=== PATIENT | female | born 1965 | race Caucasian/White ===

== ENCOUNTER 2022-02-12 09:47 | Inpatient (IN) | payer BC, SELFPAY ==
[2022-02-12 09:51] VITALS: BP 189/120; PULSE 103; RESP 18; TEMP 36.9; O2SAT 100; BMI 20.9
--- NOTE | 2022-02-12 10:00 | CT_ITS ---
EXAM: CT ABDOMEN AND PELVIS WITH INTRAVENOUS CONTRAST CLINICAL INDICATION: LLQ pain , PRIOR HYSTERECTOMY TECHNIQUE: Helically acquired images were obtained of the abdomen and pelvis with intravenous contrast. This CT exam was performed using one or more of the following dose reduction techniques: automated exposure control, adjustment of the mA and/or kV according to patient size, and/or use of iterative reconstruction technique. This report was created using Conjectur report generation technology. CONTRAST: IV 75mL Isovue-370 COMPARISON: None. FINDINGS: LOWER THORAX: Normal. Lung bases are clear. No cardiomegaly. No pericardial effusion. ABDOMEN: LIVER: Normal. Homogeneous. No focal mass. GALLBLADDER AND BILE DUCTS: Normal. No calcified gallstones. No gallbladder distention or wall edema. No intra- or extrahepatic biliary ductal dilation. PANCREAS: Normal. No focal cystic or solid mass. SPLEEN: Normal. Normal size without focal cystic or solid mass. ADRENALS: Normal. No nodules. KIDNEYS AND URETERS: Aplastic right kidney. Compensatory hypertrophy of the left kidney. No hydronephrosis. STOMACH AND BOWEL: Wall thickening of the sigmoid colon noted associated with mild adjacent fat stranding consistent with acute sigmoid diverticulitis. There appears to be a small contained perforation along the anterior portion of the sigmoid colon abutting the posterior wall of the urinary bladder. PELVIS: APPENDIX: Normal short appendix or appendiceal stump is noted. BLADDER: Normal. REPRODUCTIVE: Uterus is absent. ABDOMEN and PELVIS: INTRAPERITONEAL SPACE: No ascites or other fluid collection. No free air. BONES/JOINTS: No suspicious lytic or blastic abnormality. SOFT TISSUES: No discrete abdominal or pelvic wall hernia. VASCULATURE: Normal. Abdominal aorta is non-dilated. LYMPH NODES: Normal. No enlarged lymph nodes. CT/Abdomen/Pelvis W IV Cont ONLY IMPRESSION: 1. Acute sigmoid diverticulitis with small contained anterior perforation. No evidence of abscess. 2. Absence of the right kidney with compensatory hypertrophy of the left kidney. Electronically Signed: John Beltrán MD at 12:02 EST ,
--- NOTE | 2022-02-12 10:01 | EDS_ITS ---
HPI HPI - GI History of Present Illness Chief Complaint: Abd Pain Informant: patient Abdominal Pain/Flank Pain Onset: Yesterday Context: - (Awoke with pain) Timing: Continuous (Not colicky) Quality: Aching and Sharp Location: LLQ Current Severity: Severe Maximum Severity: Severe Worsened by: - (Having bowel movement, no anal pain and not associated with Valsalva) Relieved by: Nothing Nausea/Vomiting/Emesis GI Symptom: Negative for Nausea or Vomiting Diarrhea/Melena/Hematochezia GI Symptom: Negative for Diarrhea, Melena or Hematochezia Associated Symptoms Associated Symptoms: Negative for Dysuria, Frequency, Hematuria or Urgency Narrative Narrative: Patient woke yesterday with this left lower quadrant abdominal pain, she states it seemed to get better after a bowel movement and then was relatively mild throughout the day yesterday. Awoke this morning with it severe, and it has remained that way since, getting worse with bowel movements this morning. No blood. States she had a colonoscopy in the past but does not remember them saying anything abnormal about it, no history of diverticulosis or diverticulitis that she knows of. No nausea, vomiting, fevers, or urinary symptoms. Occasionally radiates into her left low back specially when the pain is severe. PFSH PFSH Allergy/AdvReac Type Severity Reaction Status Date / Time chocolate flavor Allergy Other Verified 02/12/22 09:50 Food Allergies: Uncoded Allergy Other Verified 02/12/22 09:50 Iodinated Contrast Media AdvReac Hives Verified 02/12/22 10:19 Surgical History (Updated 02/12/22 @ 10:[address] Joseph Jones MD) H/O laparoscopy H/O: hysterectomy Social History Smoking Status: Current every day smoker tobacco type: cigarettes ROS ROS ED Constitutional Constitutional ED: Denies chills or fever(s) Eyes Eyes: Denies change in vision or diplopia ENT ENT ED: Denies rhinorrhea or sore throat Cardiovascular Cardiovascular: Denies chest pain or palpitations Respiratory/Chest Respiratory/Chest: Denies cough or dyspnea Gastrointestinal Gastrointestinal: Reports abdominal pain; Denies diarrhea, melena, nausea or vomiting Genitourinary Genitourinary ED: Denies dysuria, hematuria or urinary frequency Musculoskeletal Musculoskeletal: Reports back pain; Denies neck pain Integumentary Denies abscess or rash Neurologic Neurologic: Denies headache(s), paresthesias or weakness Psychiatric Psychiatric: Denies anxiety or suicidal thoughts EXAM Physical Exam Const Vital Signs: 02/12/22 09:51 Temperature 98.4 F Temperature Source Temporal Pulse Rate 103 H Respiratory Rate 18 Blood Pressure 189/120 H Blood Pressure Mean 143 Pulse Ox 100 Oxygen Delivery Method Room Air Positive well nourished and well developed General Appearance ED: well developed and NAD HEENT Reports moist mucous membranes normocephalic and atraumatic Eyes PERRL and EOMs intact bilaterally Neck full ROM and supple Resp normal respiratory effort and clear to auscultation bilaterally Cardio regular rate, regular rhythm and no murmurs GI non-distended GI Narrative: Suprapubic and left lower quadrant tenderness without guarding or rebound. Nontender lateral left flank, left upper quadrant, and the rest of the abdomen. Auscultation: normoactive bowel sounds Palpation: soft Back/Spine no CVA tenderness General Back: other FROM Extremity normal to inspection General Extremety ED: Negative for edema, pulses abnormal or tenderness General Extremity: Negative for edema or pulses abnormal Neuro oriented x3, CN's II-XII intact bilaterally and no sensory deficits noted Sensorium / Orientation: awake and alert Motor Exam: strength 5/5 throughout Skin no rashes or lesions noted and no wounds MDM MDM MDM Narrative Medical decision making narrative: Work-up including an IV contrasted CT, for which she was pretreated with our steroid protocol since she has a nonanaphylactic reaction to iodinated contrast media, shows acute sigmoid diverticulitis with a contained perforation, no signs of an abscess. She has a white blood count of 10.0 at the high end of normal and the rest of her labs are unremarkable. Discussed with Dr. Soriano with surgery, he recommends medical admission with IV antibiotics for this, and leaving the patient n.p.o., acutely. Will discuss with hospitalist. Patient is doing much better after treating with IV fluids, Zofran, and morphine. She did not develop any complications further while in the emergency department and has a nonsurgical abdomen. Lab Data Attestation: I reviewed the patient's lab results. Labs: Laboratory Results - last 24 hr 02/12/22 02/12/22 02/12/22 10:05 10:05 10:40 WBC 10.0 RBC 4.82 Hgb 15.8 H Hct 46.3 MCV 96.1 MCH 32.8 H MCHC 34.1 RDW Std Deviation 45.5 H RDW Coeff of Elizabeth 12.7 Plt Count 258 MPV 8.8 Immature Gran % (Auto) 0.300 Neut % (Auto) 79.2 H Lymph % (Auto) 12.6 L [place] % (Auto) 7.2 Eos % (Auto) 0.5 Baso % (Auto) 0.2 Absolute Neuts (auto) 7.9 H Absolute Lymphs (auto) 1.26 Nucleated RBC % 0 Sodium 139 Potassium 4.1 Chloride 104 Carbon Dioxide 28.0 Anion Gap 7 BUN 8 Creatinine 0.68 Estim Creat Clear Calc 84.11 Est GFR (MDRD) Af Amer 115 Est GFR (MDRD) Non-Af 95 BUN/Creatinine Ratio 11.8 Glucose 127 H Calcium 9.6 Urine Color Yellow Urine Clarity Clear Urine pH 7.0 Ur Specific [place] 1.005 Urine Protein Negative Urine Glucose (UA) Normal Urine Ketones Negative Urine Occult Blood Negative Urine Nitrite Negative Urine Bilirubin Negative Urine Urobilinogen Normal Ur Leukocyte Esterase Negative Urine RBC 0 SEEN Urine WBC 0 SEEN Ur Squamous Epith Cells 0 SEEN Urine Bacteria 0 SEEN Urine Mucus 0 SEEN Radiography Diagnostic Testing: Clinical Impression(s) from Imaging Studies Abdomen/Pelvis CT 02/12/22 10:00 IMPRESSION: 1. Acute sigmoid diverticulitis with small contained anterior perforation. No evidence of abscess. 2. Absence of the right kidney with compensatory hypertrophy of the left kidney. Electronically Signed: John Beltrán MD at 12:02 EST Reading Location ID and State: [facility] / [place] Tel , Service support , Discharge Plan Triage Chief Complaint: Abd Pain ED Provider: Joseph Jones Dx/Rx/DC Orders Clinical Impression: Diverticulitis of intestine with perforation without abscess or bleeding Primary Care Provider: Kingsley Paiz Referrals: Kingsley Paiz MD [Primary Care Provider] - Disposition Disposition: Acute Care [facility]
[2022-02-12 10:16] LABS: Absolute Lymphocyte Count 1.26 X10^3/uL (0.83-4.51); Absolute Neutrophil Count 7.9 X10^3/uL (2.0-7.7); Basophil# 0.02 X10^3/uL; Basophil% 0.2 % (0-1); Eosinophil# 0.05 X10^3/uL; Eosinophils% 0.5 % (0-5); Hematocrit 46.3 % (37-47); Hemoglobin 15.8 g/dL (12.0-15.0); Lymphocyte # 1.26 X10^3/ul (0.83-4.51); Lymphocyte % 12.6 % (19-41); Mean Corp Hgb Conc 34.1 g/dL (32-36); Mean Corpuscular Hgb 32.8 pg (27.0-32.0); Mean Corpuscular Volume 96.1 fL (81-99); Mean Platelet Vol. 8.8 fl (6.2-12.0); Monocyte# 0.72 X10^3/uL; Monocyte% 7.2 % (0-10); NRBC Flagged by Analyzer 0 % (0-5); Neutrophil % 79.2 % (47-70); Platelet Count 258 K/mm3 (150-450); RBC Distribution Width CV 12.7 % (11.6-14.6); RBC Distribution Width SD 45.5 fl (35.1-43.9); Red Blood Count 4.82 M/mm3 (4.2-5.4)
[2022-02-12] MEDS: 0.9% Normal Saline 1,000 ML 1000 ML IV (10:21)
[2022-02-12] MEDS: Ketorolac 15 MG/ML Vial IV (10:22)
[2022-02-12] MEDS: Ondansetron 4 MG/2 ML Vial IV (10:22)
[2022-02-12] MEDS: Morphine 4 MG/ML Syringe IV (10:22)
[2022-02-12 10:28] LABS: Anion Gap 7 (5-15); BUN 8 mg/dL (7-18); BUN/Creat Ratio 11.8 RATIO (10-20); Calcium,Total 9.6 mg/dL (8.5-10.1); Chloride 104 mmol/L (98-107); Creatinine, Serum 0.68 mg/dL (0.55-1.02); EST Glomerular Filtration Rate 95 mL/min (>60); Est Glom Filt Rate - Afr Amer 115 mL/min (>60); Estimated Creatinine Clearance 84.11 ml/min; Glucose 127 mg/dL (74-106); Potassium 4.1 mmol/L (3.5-5.1); Sodium Level 139 mmol/L (136-145)
[2022-02-12] MEDS: DiphenhydrAMINE 50 MG/ML Syringe IV (10:46)
[2022-02-12 10:51] LABS: Bacteria 0 SEEN /hpf (None Seen); Mucous, Urine 0 SEEN /hpf (<or=2+); Red Blood Cells-Urine 0 SEEN /hpf (0-5); Squamous Epithelial Cells - UA 0 SEEN /hpf (5-10); White Blood Cells 0 SEEN /hpf (0-5)
[2022-02-12 11:06] LABS: Color, Urine Yellow (Yellow); Glucose, Dipstick Normal (Normal); Ketone-Dipstick Negative (Negative); Leukocyte Esterase-Dipstick Negative /ul (Negative); Nitrite-Dipstick Negative (Negative); Occult Blood-Urine Negative /ul (Negative); Protein-Dipstick Negative (Negative); Specific Gravity, Urine 1.005 (1.002-1.030); Urine Bilirubin Dipstick Negative (Negative); Urine Clarity Clear (Clear); Urine Urobilinogen Normal (Normal)
[2022-02-12 12:00] VITALS: RESP 16
--- NOTE | 2022-02-12 12:52 | PCM.HP.STD ---
HPI - General General Date of Admission: 02/12/22 Date of Service: 02/12/22 Chief Complaint: Abdominal pain HPI Narrative DALE ESPINOZA, is a 56 F who presents 2 days of abdominal pain. Left lower quadrant. Became more severe today and presented to the emergency room. Patient had a CAT scan that showed acute sigmoid diverticulitis with small contained anterior perforation. Dr. Soriano, general surgery, was contacted in the emergency room and advised antibiotics and admission. [facility] Medical History (Updated 02/12/22 @ 12:[address] Víctor Boucher DO) Fibromyalgia HTN (hypertension) Allergy/AdvReac Type Severity Reaction Status Date / Time chocolate flavor Allergy Other Verified 02/12/22 09:50 Food Allergies: Uncoded Allergy Other Verified 02/12/22 09:50 Iodinated Contrast Media AdvReac Hives Verified 02/12/22 10:19 Family History (Updated 02/12/22 @ 12:[address] Víctor Boucher DO) Other Cancer Surgical History (Updated 02/12/22 @ 10:[address] Joseph Jones MD) H/O laparoscopy H/O: hysterectomy Social History (Updated 02/12/22 @ 12:[address] Víctor Boucher DO) Smoking Status: Current every day smoker tobacco type: cigarettes alcohol intake: current alcohol intake frequency: a few times a month ROS ROS Narrative No fever chills. No hematochezia, no melena. All review of systems were negative except as mentioned above in the history of present illness and the other review of systems. Vital Signs Vital Signs Vital Signs: 02/12/22 09:51 02/12/22 12:00 Temperature 36.9 C Temperature Source Temporal Pulse Rate 103 H Respiratory Rate 18 16 Blood Pressure 189/120 H Blood Pressure Mean 143 Pulse Ox 100 Oxygen Delivery Method Room Air Weight Weight: 57 kg Body Mass Index (BMI) 20.9 Physical Exam Const alert and no apparent distress HEENT normocephalic and head/scalp atraumatic Resp normal respiratory effort, no retractions and no use of accessory muscles Cardio regular rate, regular rhythm, S1 normal heart sound and S2 normal heart sound GI normal to inspection, nondistended, normoactive bowel sounds and soft to palpation GI Narrative: Tender in left lower quadrant with rebound Extremity normal to inspection Results Lab / Micro Data Attestation: I reviewed the patient's lab results. Result Diagrams: 02/12/22 10:05 02/12/22 10:05 Labs: Laboratory Results - last 24 hr 02/12/22 10:05: WBC 10.0, RBC 4.82, Hgb 15.8 H, Hct 46.3, MCV 96.1, MCH 32.8 H, MCHC 34.1, RDW Std Deviation 45.5 H, RDW Coeff of Elizabeth 12.7, Plt Count 258, MPV 8.8, Immature Gran % (Auto) 0.300, Neut % (Auto) 79.2 H, Lymph % (Auto) 12.6 L, [place] % (Auto) 7.2, Eos % (Auto) 0.5, Baso % (Auto) 0.2, Absolute Neuts (auto) 7.9 H, Absolute Lymphs (auto) 1.26, Nucleated RBC % 0 02/12/22 10:05: Sodium 139, Potassium 4.1, Chloride 104, Carbon Dioxide 28.0, Anion Gap 7, BUN 8, Creatinine 0.68, Estim Creat Clear Calc 84.11, Est GFR (MDRD) Af Amer 115, Est GFR (MDRD) Non-Af 95, BUN/Creatinine Ratio 11.8, Glucose 127 H, Calcium 9.6 02/12/22 10:40: Urine Color Yellow, Urine Clarity Clear, Urine pH 7.0, Ur Specific [place] 1.005, Urine Protein Negative, Urine Glucose (UA) Normal, Urine Ketones Negative, Urine Occult Blood Negative, Urine Nitrite Negative, Urine Bilirubin Negative, Urine Urobilinogen Normal, Ur Leukocyte Esterase Negative, Urine RBC 0 SEEN, Urine WBC 0 SEEN, Ur Squamous Epith Cells 0 SEEN, Urine Bacteria 0 SEEN, Urine Mucus 0 SEEN Radiology Impression Abdomen/Pelvis CT 02/12/22 10:00 IMPRESSION: 1. Acute sigmoid diverticulitis with small contained anterior perforation. No evidence of abscess. 2. Absence of the right kidney with compensatory hypertrophy of the left kidney. Electronically Signed: John eBltrán MD at 12:02 EST Reading Location ID and State: [address] [place] [address] Tel , Service support , Assessment & Plan Assessment/Plan (1) Diverticulitis of intestine with perforation without abscess or bleeding: PLAN: No surgery at this time. Continue with broad-spectrum antibiotics with piperacillin/tazobactam. Clear liquid diet Consult general surgery in case her condition worsens. PLAN: Plan Chronic conditions fibromyalgia: Continue pain control hypertension: Not on home medications. Blood pressure is accelerated here. Initiate amlodipine. VTE prophylaxis with low molecular weight heparin Anticipated length of stay is to be determined. Patient currently hemodynamic stable but has high risk for rapid deterioration This perforation gets worse therefore requiring potential surgery. Charges/Coding Visit Charges Inpatient E&M: 49113 Init Hosp L2
[2022-02-12 13:00] VITALS: BP 163/101; PULSE 97; RESP 16; TEMP 36.6
[2022-02-12 13:30] VITALS: BP 149/89; PULSE 73; RESP 18; TEMP 37.2; O2SAT 95
[2022-02-12 13:34] VITALS: BMI 20.9
[2022-02-12] MEDS: Acetaminophen 500 MG Tablet 1000 MG PO ×2 (14:02→21:49)
[2022-02-12] MEDS: oxyCODONE 5 MG Tablet PO ×2 (15:29→20:13)
[2022-02-12 20:09] VITALS: BP 131/93; PULSE 61; RESP 18; TEMP 36.8; O2SAT 95
[2022-02-13 03:24] VITALS: BP 128/61; PULSE 53; RESP 18; TEMP 36.8; O2SAT 96
[2022-02-13] MEDS: Acetaminophen 500 MG Tablet 1000 MG PO (05:35)
[2022-02-13] MEDS: oxyCODONE 5 MG Tablet PO ×2 (05:38→10:54)
[2022-02-13 06:18] LABS: Absolute Lymphocyte Count 1.59 X10^3/uL (0.83-4.51); Absolute Neutrophil Count 6.3 X10^3/uL (2.0-7.7); Basophil# 0.01 X10^3/uL; Basophil% 0.1 % (0-1); Eosinophil# 0.01 X10^3/uL; Eosinophils% 0.1 % (0-5); Hematocrit 46.1 % (37-47); Hemoglobin 14.9 g/dL (12.0-15.0); Lymphocyte # 1.59 X10^3/ul (0.83-4.51); Lymphocyte % 18.7 % (19-41); Mean Corp Hgb Conc 32.3 g/dL (32-36); Mean Corpuscular Hgb 31.9 pg (27.0-32.0); Mean Corpuscular Volume 98.7 fL (81-99); Mean Platelet Vol. 9.3 fl (6.2-12.0); Monocyte# 0.55 X10^3/uL; Monocyte% 6.5 % (0-10); NRBC Flagged by Analyzer 0 % (0-5); Neutrophil # 6.34 X10^3/uL (2.7-7.7); Neutrophil % 74.4 % (47-70); Platelet Count 230 K/mm3 (150-450); RBC Distribution Width CV 12.5 % (11.6-14.6); RBC Distribution Width SD 45.1 fl (35.1-43.9); Red Blood Count 4.67 M/mm3 (4.2-5.4); White Blood Count 8.5 K/mm3 (4.4-11.0)
[2022-02-13 06:47] LABS: Anion Gap 5 (5-15); BUN 7 mg/dL (7-18); BUN/Creat Ratio 10.2 RATIO (10-20); Calcium,Total 8.8 mg/dL (8.5-10.1); Chloride 106 mmol/L (98-107); Creatinine, Serum 0.68 mg/dL (0.55-1.02); EST Glomerular Filtration Rate 95 mL/min (>60); Est Glom Filt Rate - Afr Amer 114 mL/min (>60); Estimated Creatinine Clearance 84.11 ml/min; Glucose 86 mg/dL (74-106); Sodium Level 138 mmol/L (136-145)
--- NOTE | 2022-02-13 07:25 | PCM.PN.HOSP ---
Subjective Subjective Abdomen feeling better. Objective Data Objective Data Vital Signs: Vital Signs Temp Pulse Resp BP Pulse Ox O2 Del Method 36.8 C 53 L 18 128/61 H 96 Room Air 02/13/22 03:24 02/13/22 03:24 02/13/22 03:24 02/13/22 03:24 02/13/22 03:24 02/13/22 03:24 Oxygen Delivery Method Room Air Weight: 57 kg Body Mass Index (BMI) 20.9 Intake & Output: Intake and Output for Last 24 Hours 02/11/22 02/12/22 02/13/22 23:59 23:59 23:59 Intake Total 1065.75 / 1365.75 407.5 / 407.5 Balance 1065.75 / 1365.75 407.5 / 407.5 Lab / Micro Data Result Diagrams: 02/13/22 05:44 02/13/22 05:44 Labs: Laboratory Results - last 24 hr 02/12/22 10:05: WBC 10.0, RBC 4.82, Hgb 15.8 H, Hct 46.3, MCV 96.1, MCH 32.8 H, MCHC 34.1, RDW Std Deviation 45.5 H, RDW Coeff of Elizabeth 12.7, Plt Count 258, MPV 8.8, Immature Gran % (Auto) 0.300, Neut % (Auto) 79.2 H, Lymph % (Auto) 12.6 L, [place] % (Auto) 7.2, Eos % (Auto) 0.5, Baso % (Auto) 0.2, Absolute Neuts (auto) 7.9 H, Absolute Lymphs (auto) 1.26, Nucleated RBC % 0 02/12/22 10:05: Sodium 139, Potassium 4.1, Chloride 104, Carbon Dioxide 28.0, Anion Gap 7, BUN 8, Creatinine 0.68, Estim Creat Clear Calc 84.11, Est GFR (MDRD) Af Amer 115, Est GFR (MDRD) Non-Af 95, BUN/Creatinine Ratio 11.8, Glucose 127 H, Calcium 9.6 02/12/22 10:40: Urine Color Yellow, Urine Clarity Clear, Urine pH 7.0, Ur Specific [place] 1.005, Urine Protein Negative, Urine Glucose (UA) Normal, Urine Ketones Negative, Urine Occult Blood Negative, Urine Nitrite Negative, Urine Bilirubin Negative, Urine Urobilinogen Normal, Ur Leukocyte Esterase Negative, Urine RBC 0 SEEN, Urine WBC 0 SEEN, Ur Squamous Epith Cells 0 SEEN, Urine Bacteria 0 SEEN, Urine Mucus 0 SEEN 02/13/22 05:44: WBC 8.5, RBC 4.67, Hgb 14.9, Hct 46.1, MCV 98.7, MCH 31.9, MCHC 32.3 D, RDW Std Deviation 45.1 H, RDW Coeff of [place] 12.5, Plt Count 230, MPV 9.3, Immature Gran % (Auto) 0.200, Neut % (Auto) 74.4 H, Lymph % (Auto) 18.7 L, [place] % (Auto) 6.5, Eos % (Auto) 0.1, Baso % (Auto) 0.1, Absolute Neuts (auto) 6.3, Absolute Lymphs (auto) 1.59, Nucleated RBC % 0 02/13/22 05:44: Sodium 138, Potassium 4.0, Chloride 106, Carbon Dioxide 27.0, Anion Gap 5, BUN 7, Creatinine 0.68, Estim Creat Clear Calc 84.11, Est GFR (MDRD) Af Amer 114, Est GFR (MDRD) Non-Af 95, BUN/Creatinine Ratio 10.2, Glucose 86, Calcium 8.8 Radiography Diagnostic Testing: Radiology Impression Abdomen/Pelvis CT 02/12/22 10:00 IMPRESSION: 1. Acute sigmoid diverticulitis with small contained anterior perforation. No evidence of abscess. 2. Absence of the right kidney with compensatory hypertrophy of the left kidney. Electronically Signed: John Beltrán MD at 12:02 EST , Physical Exam Const alert and no apparent distress Resp normal respiratory effort, no retractions, no use of accessory muscles and clear to auscultation bilaterally Cardio regular rate, regular rhythm and S1 normal heart sound GI GI Narrative: Less tenderness in left lower quadrant. No rebound tenderness Assessment & Plan Assessment/Plan (1) Diverticulitis of intestine with perforation without abscess or bleeding: PLAN: Clinically improved. No surgery at this time. Continue with broad-spectrum antibiotics with piperacillin/tazobactam. Clear liquid diet Consult general surgery in case her condition worsens. PLAN: Plan Chronic conditions fibromyalgia: Continue pain control hypertension: Not on home medications. Blood pressure is accelerated here. Initiate amlodipine. VTE prophylaxis with low molecular weight heparin Anticipated length of stay is to be determined. Patient currently hemodynamic stable but has high risk for rapid deterioration This perforation gets worse therefore requiring potential surgery. Charges/Coding Visit Charges Inpatient E&M: 64972 Subs Hosp L2
[2022-02-13 09:24] VITALS: BP 140/87; PULSE 56; RESP 16; TEMP 36.9; O2SAT 100
[2022-02-13] MEDS: Enoxaparin 40 MG/0.4 ML Syringe SC (09:40)
--- NOTE | 2022-02-13 10:50 | CASEMGMT ---
RN CM Face to Face with patient for initial transition planning/care coordination assessment. RN CM introduced self and role at [facility]. Patient lying in bed, alert and oriented, boyfriend at bedside. Patient willing to participate in assessment and is able to answer all questions appropriately. Care providers, pharmacy, and demographics verified. Patient wishes to discharge home, denies need for home health at this time. Patient states she has no further needs or concerns at this time. CM to follow for discharge planning needs that may arise. PCP: [facility] Specialists: jules Mckeon Preferred Pharmacy: [facility] Insurance: [place] Prescription Benefit: yes Living Will/HPOA: none LNOK: sister, mother Living Arrangements: Patient lives alone in a 2 story home with bed and bath on first floor. Patient is independent at home. Transportation: self, boyfriendn DME/HHC: Patient denies DME in the home. Patient denies previous HHC Disposition Plan: Patient to discharge home with family support and follow-up plans in place. Rebecca ADKINSN, RN, CM
--- NOTE | 2022-02-13 12:43 | DCINST_ITS ---
Discharge Instructions Diet Discharge Diet: Soft diet Dressing / Incision Call your doctor if you observe: - (worsening abdominal pain. ) Follow Up Care Test Results: Test results from this visit will be discussed in further detail at your follow- up appointment, if applicable. Discharge Plan Admission Admit Date/Time: 02/12/22 12:48 Primary Reason for Your Visit: diverticulitis Attending Provider: Víctor Boucher Primary Care Provider: Kingsley Paiz Consulting Providers: Ja Soriano Discharge Orders/Prescriptions Prescriptions: New acetaminophen 500 mg Tablet 1,000 mg PO Q8 PRN (Reason: fever or pain) Qty: 20 0RF oxycodone 5 mg Tablet 5 mg PO Q6H PRN (Reason: pain (scale score 7-10)) 3 Days Qty: 12 0RF ciprofloxacin HCl [Cipro] 500 mg tablet 500 mg PO Q12H Qty: 14 0RF metronidazole 500 mg tablet 500 mg PO Q8H Qty: 21 0RF ondansetron 8 mg tablet,disintegrating 8 mg PO Q8H PRN (Reason: nausea and vomiting) 5 Days Qty: 15 0RF Held tramadol 100 mg tablet extended release 24 hr 100 mg PO PRN (Reason: Pain) Hold Instructions: hold while taking oxycodone Label Comments: TAKE 1 TABLET BY MOUTH EVERY DAY Referrals / Follow Up: Ja Soriano MD [Med Staff - Active Staff] - Within 2 Weeks Kingsley Paiz MD [Primary Care Provider] - Within 2 Weeks Disposition Disposition (needs filled in before D/C Order can be placed): Home, Self Care
--- NOTE | 2022-02-13 12:49 | DS.PCM_ITS ---
Providers Date of Admission: 02/12/22 Primary Care Physician: Dr. Kingsley Paiz MD Consultations 02/12/22 13:26 Consult: General Surgery Routine Consulting Provider: Ja Soriano Reason for Consult: diverticulitis EMERGENT Consult: No MD Notified: Yes Date Notified: 02/12/22 Time Notified: 12:50 Method of Notification: ED Physician Initiated Reason For Visit: DIVERTICULITIS Diagnosis Discharge Diagnosis (1) Diverticulitis of intestine with perforation without abscess or bleeding: Status: Acute Code(s): K57.80 - Diverticulitis of intestine, part unspecified, with perforation and abscess without bleeding Plan: Clinically improved. No surgery at this time. Discussed with Dr. Soriano: Recommends soft diet and follow-up with him. Patient will be discharged with 7 days of ciprofloxacin and metronidazole. Patient advised to return if she is feeling worse. Patient also received a short prescription of oxycodone as well as Zofran. Plan Chronic conditions * fibromyalgia: Continue pain control * hypertension: Not on home medications. Blood pressure is accelerated here. Initiate amlodipine. VTE prophylaxis with low molecular weight heparin Anticipated length of stay is to be determined. Patient currently hemodynamic stable but has high risk for rapid deterioration This perforation gets worse therefore requiring potential surgery. Medications at Discharge Home Medications tramadol 100 mg tablet,extended release 24 hr 100 mg PO PRN Pain 02/12/22 acetaminophen 500 mg tablet 1,000 mg PO Q8 PRN fever or pain #20 tabs 02/13/22 ciprofloxacin HCl 500 mg tablet (Cipro) 500 mg PO Q12H #14 tabs 02/13/22 metronidazole 500 mg tablet 500 mg PO Q8H #21 tabs 02/13/22 ondansetron 8 mg disintegrating tablet 8 mg PO Q8H PRN nausea and vomiting 5 days #15 tabs 02/13/22 oxycodone 5 mg tablet 5 mg PO Q6H PRN pain (scale score 7-10) 3 days #12 tabs 02/13/22 Hospital Course Operations None Procedures None Summary of Care Provided Minutes Spent on Discharge: 26 Weight / BMI Weight Weight: 57 kg Body Mass Index (BMI) 20.9 ABG / Lab / Microbiology Data Result Diagrams: 02/13/22 05:44 02/13/22 05:44 Laboratory: Laboratory Results - last 24 hr 02/13/22 05:44: WBC 8.5, RBC 4.67, Hgb 14.9, Hct 46.1, MCV 98.7, MCH 31.9, MCHC 32.3 D, RDW Std Deviation 45.1 H, RDW Coeff of [place] 12.5, Plt Count 230, MPV 9.3, Immature Gran % (Auto) 0.200, Neut % (Auto) 74.4 H, Lymph % (Auto) 18.7 L, [place] % (Auto) 6.5, Eos % (Auto) 0.1, Baso % (Auto) 0.1, Absolute Neuts (auto) 6.3, Absolute Lymphs (auto) 1.59, Nucleated RBC % 0 02/13/22 05:44: Sodium 138, Potassium 4.0, Chloride 106, Carbon Dioxide 27.0, Anion Gap 5, BUN 7, Creatinine 0.68, Estim Creat Clear Calc 84.11, Est GFR (MDRD) Af Amer 114, Est GFR (MDRD) Non-Af 95, BUN/Creatinine Ratio 10.2, Glucose 86, Calcium 8.8 D/C Instructions Discharge Diet: Soft diet Call your doctor if you observe: - (worsening abdominal pain. ) Meaningful Use Info Meaningful Use Diagnoses (Choose all that apply): None applicable Discharge Plan Admission Admit Date/Time: 02/12/22 12:48 Primary Reason for Your Visit: diverticulitis Attending Provider: Víctor Boucher Primary Care Provider: Kingsley Paiz Consulting Providers: Ja Soriano Discharge Orders/Prescriptions Prescriptions: New acetaminophen 500 mg Tablet 1,000 mg PO Q8 PRN (Reason: fever or pain) Qty: 20 0RF oxycodone 5 mg Tablet 5 mg PO Q6H PRN (Reason: pain (scale score 7-10)) 3 Days Qty: 12 0RF ciprofloxacin HCl [Cipro] 500 mg tablet 500 mg PO Q12H Qty: 14 0RF metronidazole 500 mg tablet 500 mg PO Q8H Qty: 21 0RF ondansetron 8 mg tablet,disintegrating 8 mg PO Q8H PRN (Reason: nausea and vomiting) 5 Days Qty: 15 0RF Held tramadol 100 mg tablet extended release 24 hr 100 mg PO PRN (Reason: Pain) Hold Instructions: hold while taking oxycodone Label Comments: TAKE 1 TABLET BY MOUTH EVERY DAY Referrals / Follow Up: Ja Soriano MD [Med Staff - Active Staff] - Within 2 Weeks Kingsley Paiz MD [Primary Care Provider] - Within 2 Weeks Disposition Disposition (needs filled in before D/C Order can be placed): Home, Self Care Charges/Coding Visit Charges Inpatient E&M: 53362 Disch Hosp
--- NOTE | 2022-02-13 13:19 | EX.PCM.CON.S ---
Assessment & Plan Assessment/Plan (1) Diverticulitis of intestine with perforation without abscess or bleeding: PLAN: Patient is currently doing well on medical management. And I believe that it is okay for her to be discharged and staying on a very low residue diet. Patient understands that there is a likelihood that this could recur and if she is to redevelop any abdominal pain I want her to stop eating it once and report to my office NEAL. At some point we are going to have to repeat a colonoscopy on her. This would likely need to be done under propofol anesthesia. I do not believe she needs any emergent surgical intervention at this time. HPI Consult Data Date of Consult: 02/13/22 HPI Narrative HPI Narrative: DALE ESPINOZA, is a 56 F who presents 2 days of abdominal pain.? Left lower quadrant.? Became more severe today and presented to the emergency room.? Patient had a CAT scan that showed acute sigmoid diverticulitis with small contained anterior perforation. Patient has not complaining of any abdominal pain today states she feels 100% better than she did yesterday. She is passing flatus. Her white count is normal. [facility] [place] Medical History Fibromyalgia HTN (hypertension) Home Medications tramadol 100 mg tablet,extended release 24 hr 100 mg PO PRN Pain 02/12/22 [History Last Taken Unknown] acetaminophen 500 mg tablet 1,000 mg PO Q8 PRN fever or pain #20 tabs 02/13/22 [Rx Last Taken Unknown] ciprofloxacin HCl 500 mg tablet (Cipro) 500 mg PO Q12H #14 tabs 02/13/22 [Rx Last Taken Unknown] metronidazole 500 mg tablet 500 mg PO Q8H #21 tabs 02/13/22 [Rx Last Taken Unknown] ondansetron 8 mg disintegrating tablet 8 mg PO Q8H PRN nausea and vomiting 5 days #15 tabs 02/13/22 [Rx Last Taken Unknown] oxycodone 5 mg tablet 5 mg PO Q6H PRN pain (scale score 7-10) 3 days #12 tabs 02/13/22 [Rx Last Taken Unknown] Allergy/AdvReac Type Severity Reaction Status Date / Time chocolate flavor Allergy Other Verified 02/12/22 09:50 Food Allergies: Uncoded Allergy Other Verified 02/12/22 09:50 Iodinated Contrast Media AdvReac Hives Verified 02/12/22 10:19 Family History (Updated 02/12/22 @ 12:[address] Víctor Boucher DO) Other Cancer Surgical History (Updated 02/12/22 @ 10:[address] Joseph Jones MD) H/O laparoscopy H/O: hysterectomy Social History (Updated 02/12/22 @ 12:[address] Víctor Boucher DO) Smoking Status: Current every day smoker tobacco type: cigarettes alcohol intake: current alcohol intake frequency: a few times a month ROS Constitutional Constitutional: Denies anorexia, chills or fever(s) Cardiovascular Cardiovascular: Denies chest pain Respiratory/Chest Respiratory/Chest: Denies cough Gastrointestinal Gastrointestinal: Denies abdominal pain or bloating Genitourinary Genitourinary: Denies change in urinary stream Physical Exam Const alert, oriented x3 and no apparent distress HEENT normocephalic and head/scalp atraumatic Eyes PERRL and EOMs intact bilaterally Resp clear to auscultation bilaterally Cardio Rate: regular rate Rhythm: regular rhythm GI soft to palpation, non-tender and non-distended Back/Spine no CVA tenderness Lab / Micro Data Result Diagrams: 02/13/22 05:44 02/13/22 05:44 Labs: Laboratory Results - last 24 hr 02/13/22 05:44: WBC 8.5, RBC 4.67, Hgb 14.9, Hct 46.1, MCV 98.7, MCH 31.9, MCHC 32.3 D, RDW Std Deviation 45.1 H, RDW Coeff of Elizabeth 12.5, Plt Count 230, MPV 9.3, Immature Gran % (Auto) 0.200, Neut % (Auto) 74.4 H, Lymph % (Auto) 18.7 L, [place] % (Auto) 6.5, Eos % (Auto) 0.1, Baso % (Auto) 0.1, Absolute Neuts (auto) 6.3, Absolute Lymphs (auto) 1.59, Nucleated RBC % 0 02/13/22 05:44: Sodium 138, Potassium 4.0, Chloride 106, Carbon Dioxide 27.0, Anion Gap 5, BUN 7, Creatinine 0.68, Estim Creat Clear Calc 84.11, Est GFR (MDRD) Af Amer 114, Est GFR (MDRD) Non-Af 95, BUN/Creatinine Ratio 10.2, Glucose 86, Calcium 8.8
[2022-02-13 13:47] VITALS: BP 117/90; PULSE 56; RESP 16; TEMP 37; O2SAT 100
== END 2022-02-13 14:05 | disposition home or self-care (01) | DRG 379 ==
LOC: ED 12:27 → MS3 14:57
PROVIDERS: Emergency Provider Emergency Medicine; PCP Family Medicine
DX: K57.21 Diverticulitis of large intestine with perforation and abscess with bleeding (principal); F17.210 Nicotine dependence, cigarettes, uncomplicated; M79.7 Fibromyalgia; I10 Essential (primary) hypertension; Z79.899 Other long term (current) drug therapy
CPT/HCPCS: 36415; 74177; 80048; 81001; 85025; 99284; 99406; J7030; J7050; Q9967; A4216; J0744; J2405

== ENCOUNTER → 2022-04-17 | Outpatient (CLI) | payer BC, SELFPAY ==
--- NOTE | 2022-04-17 09:14 | RAD_ITS ---
STUDY: X-RAY - LUMBAR SPINE REASON FOR EXAM: Female, 56 years old. M54.5 TECHNIQUE: 4 view(s) of the lumbar spine were obtained. COMPARISON: None FINDINGS: Normal lumbar lordosis. There is no substantial scoliosis. There is a normal alignment of the vertebrae. Normal vertebral bodies and endplates. Normal disc space heights. There is no evidence of acute fracture or loss of vertebral axial height. There is no demonstrated spondylolysis of the pars interarticulares. There is atherosclerotic calcification of the abdominal aorta without a demonstrated aneurysm. RAD/L/S Spine Min 4 Views IMPRESSION: Normal x-ray examination of the lumbar spine. Electronically Signed: Ayush Rodrigues DO at 16:52 EST ,
== END | disposition home or self-care (01) ==
LOC: RAD 09:10
PROVIDERS: PCP Family Medicine; Visit Provider Anesthesiology Pain Medicine
DX: M47.816 Spondylosis without myelopathy or radiculopathy, lumbar region (principal)
CPT/HCPCS: 72110

== ENCOUNTER 2024-11-07 11:56 | Emergency (ER) | payer BC, SELFPAY ==
[2024-11-07 11:57] VITALS: BP 147/103; PULSE 96; RESP 16; TEMP 37.2; O2SAT 96; BMI 48.8
[2024-11-07 12:00] VITALS: BP 112/93; PULSE 90; RESP 15; TEMP 36.2; O2SAT 96
--- NOTE | 2024-11-07 12:22 | CT_ITS ---
PROCEDURE: ABDOMEN/PELVIS WITHOUT CONT 11/07/2024 REASON FOR EXAM: LLQ ABD PAIN TECHNIQUE: ABDOMEN/PELVIS WITHOUT CONT Noncontrast technique limits evaluation of the abdominal and pelvic viscera. Coronal and Sagittal reconstruction series were provided. One or more dose reduction techniques were used (e.g., Automated exposure control, adjustment of the mA and/or kV according to patient size, use of iterative reconstruction technique). RADIATION DOSE SUMMARY: DLP: 321 mGycm COMPARISON: February 12, 2022 FINDINGS: Lung bases: Clear Liver: Unremarkable Gallbladder: Unremarkable Spleen: Unremarkable Pancreas: Unremarkable Adrenals: Unremarkable Kidneys: The right kidney is absent. The left kidney shows no mass, stone, or hydronephrosis. There is no visible ureteral stone. Bladder: Unremarkable Reproductive Organs: Absent Bowel: There is diverticulosis of the descending and sigmoid colon with inflammatory stranding in the pericolonic fat in the proximal sigmoid, axial image 133-140/191, with no organized or drainable collection, consistent with acute diverticulitis. Single wall thickness in the proximal sigmoid = 12.7 mm. The small-bowel loops are not distended. Appendix: Unremarkable Lymph nodes: There is no pathologic adenopathy by size criteria. Vasculature: Atherosclerotic calcifications are noted. Peritoneum / Retroperitoneum: There is no free air or free fluid. Bones: There is no acute bony abnormality. CT/Abdomen/Pelvis without Cont IMPRESSION: Absent right kidney. There is diverticulosis of the descending and sigmoid colon with inflammatory s tranding in the pericolonic fat in the proximal sigmoid, axial image 133-140/191, with no organized or drainable collection, co nsistent with acute diverticulitis. Single wall thickness in the proximal sigmoid = 12.7 mm. Reading [facility]
--- NOTE | 2024-11-07 12:32 | ED.VIS.GI ---
HPI HPI - GI History of Present Illness Chief Complaint: Abd Pain Detail of Chief Complaint: Left lower quadrant abdominal pain. Informant: patient Abdominal Pain/Flank Pain Onset: Days Timing: Continuous Quality: Aching and Cramping Location: LLQ Current Severity: Mild Maximum Severity: Mild Worsened by: Nothing Relieved by: Nothing Nausea/Vomiting/Emesis GI Symptom: Positive for Nausea and Vomiting (On Wednesday now resolved.) Severity: Mild Diarrhea/Melena/Hematochezia GI Symptom: Negative for Diarrhea, Melena or Hematochezia Associated Symptoms Associated Symptoms: Negative for Dysuria, Frequency, Hematuria or Urgency Narrative Narrative: 59-year-old female history of prior diverticulitis 2 years ago. Prior abdominal hysterectomy and exploratory laparotomy for adhesions. Still has her gallbladder or appendix. States she has had left lower quadrant abdominal pain since Wednesday. On Wednesday she had nausea vomiting that is since resolved. No diarrhea. No dysuria. No constipation. No fever. No other complaints. Prior similar symptoms: Yes Recent Illness/Hospitalization: No PFSH PFSH Medical History Right knee pain Solitary kidney Fibromyalgia HTN (hypertension) Home Medications ?Medication ?Instructions ?Recorded ?Last Taken ?Type tramadol 100 mg tablet,extended 100 mg PO PRN Pain 02/12/22 11/03/24 History release 24 hr amoxicillin 875 mg-potassium 1 tab PO BID #20 tabs 11/07/24 Unknown Rx clavulanate 125 mg tablet Allergy/AdvReac Type Severity Reaction Status Date / Time chocolate flavor Allergy Other Verified 08/10/24 15:50 Food Allergies: Uncoded Allergy Other Verified 08/10/24 15:50 Milk Containing Products Allergy Swelling Verified 08/10/24 15:50 (Dairy) Iodinated Contrast Media AdvReac Hives Verified 08/10/24 15:50 Family History Other Cancer Surgical History H/O laparoscopy H/O: hysterectomy Social History Smoking Status: Current every day smoker tobacco type: cigarettes alcohol intake: current alcohol intake frequency: holidays/special occasions only ROS ROS ED ROS Narrative Left lower quadrant abdominal pain. Denies diarrhea or fever. No dysuria. Constitutional Constitutional ED: Denies chills or fever(s) ENT ENT ED: Denies ear pain Cardiovascular Cardiovascular: Denies chest pain Respiratory/Chest Respiratory/Chest: Denies cough Gastrointestinal Gastrointestinal: Reports abdominal pain, nausea, vomiting and other Details: initially had nausea and vomiting since resolved. ; Denies constipation, diarrhea or melena Genitourinary Genitourinary ED: Denies dysuria, hematuria or urinary frequency Musculoskeletal Musculoskeletal: Denies arthralgias Integumentary Denies abscess or Abrasions Neurologic Neurologic: Denies headache(s) Psychiatric Psychiatric: Denies anxiety Endocrine Endocrinology: Denies polydipsia Hematologic/Lymphatic Hematologic/Lymphatic: Denies easy bleeding Allergic/Immunologic Allergic/Immunologic ED: Denies mouth swelling, tongue swelling or urticaria EXAM Physical Exam Narrative Exam Narrative: Well-appearing 59-year-old female. Vital signs stable afebrile. No acute distress. H EENT exam pupils round reactive light. Moist mucous membranes. Neck nontender no JVD. No lymphadenopathy. Lungs clear to auscultation. Heart regular rhythm rate about 90 no murmur. Chest wall ribs nontender. Abdomen soft nondistended normal bowel sounds without peritoneal signs. Tenderness primarily left lower quadrant suprapubic area. No rebound guarding rigidity. No specific McBurney's point or Shannon sign tenderness. No back tenderness. Moves all 4 extremities. Nontender no edema no cords. Neurologically she is awake alert. Answering question following commands. Const Vital Signs: 11/07/24 11:57 11/07/24 12:00 Temperature 99.0 F 97.1 F L Temperature Source Oral Oral Pulse Rate 96 90 Respiratory Rate 16 15 Blood Pressure 147/103 H 112/93 H Blood Pressure Mean 117 99 Pulse Ox 96 96 Oxygen Delivery Method Room Air Room Air Positive well nourished and well developed; Negative for cachectic, contractures or unkempt General Appearance ED: well developed; Negative for unkempt, cachectic, contractures or pallor Nutritional Appearance: Negative for cachectic HEENT Reports moist mucous membranes normocephalic and atraumatic; Negative for trauma or tenderness Eyes PERRL and EOMs intact bilaterally General Eye ED: Negative for pale conjunctiva or scleral icterus Neck no lymphadenopathy, supple and no JVD General: Negative for tenderness Resp normal respiratory effort and clear to auscultation bilaterally Effort and Inspection: Negative for respiratory distress Auscultation: Negative for rales, rhonchi, wheezes or diminished lung sounds Cardio regular rate, regular rhythm, S1 normal heart sound, S2 normal heart sound and no murmurs Rate: Negative for bradycardia or tachycardic Rhythm: Negative for abnormal rhythm GI non-distended and no masses; Negative for non-tender GI Narrative: Tenderness left lower quadrant. Inspection: Negative for abdominal distention Auscultation: normoactive bowel sounds Palpation: soft; Negative for guarding, rigid, hepatomegaly, splenomegaly, hernia, mass, pulsatile mass or rebound tenderness present Back/Spine no CVA tenderness General Back: Negative for CVA tenderness Cervical Spine: Negative for cervical spine tenderness Thoracic Spine / Upper Back: Negative for thoracic spinal tenderness Lumbar Spine / Lower Back: Negative for lumbar spinal tenderness Extremity General Extremety ED: Negative for edema or tenderness General Extremity: Negative for edema Neuro CN's II-XII intact bilaterally and moves all extremities Sensorium / Orientation: alert, oriented to person, oriented to place and oriented to time; Negative for orientation impaired, confused, lethargic or stuporous Motor Exam: strength 5/5 throughout Psych mental status grossly normal and thought process normal Appearance: Negative for unkempt Mood & Affect: Negative for depressed, anxious or tearful Skin no wounds General Skin Exam: Negative for jaundice or pallor Lesions: no lesions Rashes: no rashes Trauma: Negative for abrasion Nails: Negative for discolored MDM MDM MDM Narrative Medical decision making narrative: 59-year-old female left lower quadrant abdominal pain history of prior diverticulitis. CAT scan and labs being obtained. She denies any urinary symptoms. I will get CT of her stone but there is a differential. She was offered but currently does not need anything for pain or nausea. Patient doing well at 1:45 PM on repeat exam. Exam is no significant change. She is resting comfortably. We discussed her CAT scan results and labs. She is comfortable being discharged home on Augmentin 875 twice daily for 10 days. She has appointment to see her doctor in about 6 days. She knows return if worse. She will use Tylenol Motrin for pain. She will be treated for acute diverticulitis. History & Record Review Discussion w/independent historian: Patient Additional record(s) reviewed:: Prior inpatient record, Prior outpatient record, Prior ED visit and Prior labs Lab Data Attestation: I reviewed the patient's lab results. Lab results narrative: CBC normal. White count of 5. H&H 14 and 42. Platelets 256. Electrolytes show a gap of 12. BUN and creatinine of 16 and 0.6. Glucose 106. CAT scan consistent with sigmoid diverticulitis. No abscess. No perforation. Read by the radiologist. Reviewed by me. Labs: Laboratory Results - last 24 hr 11/07/24 12:31 WBC 5.5 RBC 4.50 Hgb 14.7 Hct 42.3 MCV 94.0 MCH 32.7 H MCHC 34.8 RDW Std Deviation 44.0 H RDW Coeff of Elizabeth 12.7 Plt Count 256 MPV 8.7 Immature Gran % (Auto) 0.200 Neut % (Auto) 58.4 Lymph % (Auto) 29.6 [place] % (Auto) 10.0 Eos % (Auto) 1.3 Baso % (Auto) 0.5 Absolute Neuts (auto) 3.2 Absolute Lymphs (auto) 1.63 Nucleated RBC % 0 Sodium 143 Potassium 4.5 Chloride 108 Carbon Dioxide 22.3 Anion Gap 12 BUN 16 Creatinine 0.69 L Estim Creat Clear Calc 122.68 Est GFR (MDRD) Non-Af 101 BUN/Creatinine Ratio 23.6 H Glucose 106 H Calcium 9.5 Radiography Diagnostic Testing: Clinical Impression(s) from Imaging Studies Abdomen/Pelvis CT 11/07/24 12:22 IMPRESSION: Absent right kidney. There is diverticulosis of the descending and sigmoid colon with inflammatory stranding in the pericolonic fat in the proximal sigmoid, axial image 133-140/191, with no organized or drainable collection, consistent with acute diverticulitis. Single wall thickness in the proximal sigmoid = 12.7 mm. [facility] Triage Chief Complaint: Abd Pain ED Provider: Noe Arevalo Dx/Rx/DC Orders Clinical Impression: Diverticulitis, Abdominal pain Instructions: ED Diverticulitis Prescriptions: New amoxicillin-pot clavulanate 875-125 mg tablet 1 tab PO BID Qty: 20 0RF No Action tramadol 100 mg tablet extended release 24 hr 100 mg PO PRN (Reason: Pain) Patient Comments: TAKE 1 TABLET BY MOUTH EVERY DAY Primary Care Provider: Kingsley Paiz Referrals: Kingsley Paiz MD [Primary Care Provider] - As Needed Activity Restrictions/Additional Instructions: Acute diverticulitis of your descending and sigmoid colon. No perforation or abscess. Plenty of fluids and rest. Increase your diet as tolerated. Motrin and Tylenol for pain. The antibiotic Augmentin 1 pill twice a day for 10 days. Keep the follow-up appoint with your primary care physician. Return if you are feeling worse. Print Language: Italian Disposition Disposition: Home, Self Care
[2024-11-07 12:40] LABS: Hematocrit 42.3 % (37-47); Hemoglobin 14.7 g/dL (12.0-15.0); Immature Granulocytes Count 0.010 X10^3/uL (0.0-0.0); Mean Corp Hgb Conc 34.8 g/dL (32-36); Mean Corpuscular Volume 94.0 fL (81-99); Mean Platelet Vol. 8.7 fl (6.2-12.0); NRBC Flagged by Analyzer 0 % (0-5); Platelet Count 256 K/mm3 (150-450); RBC Distribution Width CV 12.7 % (11.6-14.6); RBC Distribution Width SD 44.0 fl (35.1-43.9); Red Blood Count 4.50 M/mm3 (4.2-5.4); White Blood Count 5.5 K/mm3 (4.4-11.0)
[2024-11-07 13:03] LABS: Anion Gap 12 (5-15); BUN 16 mg/dL (4-19); BUN/Creat Ratio 23.6 RATIO (10-20); Calcium,Total 9.5 mg/dL (7.6-11.0); Carbon Dioxide 22.3 mmol/L (21.0-32.0); Chloride 108 mmol/L (98-108); Estimated Creatinine Clearance 122.68 ml/min (50-250); Glucose 106 mg/dL (70-99); Potassium 4.5 mmol/L (3.3-5.1)
[2024-11-07 13:48] LABS: Mucous, Urine 0 SEEN /hpf (<or=2+)
[2024-11-07 13:53] LABS: Color, Urine Yellow (Yellow); Glucose, Dipstick Normal (Normal); Ketone-Dipstick Negative (Negative); Leukocyte Esterase-Dipstick Negative /ul (Negative); Nitrite-Dipstick Negative (Negative); Occult Blood-Urine 25 /ul (Negative); Protein-Dipstick 15 mg/dl (Negative); Specific Gravity, Urine 1.020 (1.002-1.030); Urine Bilirubin Dipstick Negative (Negative)
[2024-11-07 13:57] VITALS: BP 151/97; PULSE 80; RESP 15; TEMP 36.8; O2SAT 99
[2024-11-07 13:59] LABS: Red Blood Cells-Urine 0-5 SEEN /hpf (0-5); Squamous Epithelial Cells - UA 0-5 SEEN /hpf (5-10)
== END 2024-11-07 13:59 | disposition home or self-care (01) ==
PROVIDERS: Emergency Provider Emergency Medicine; PCP Family Medicine; Visit Provider Emergency Medicine
DX: R10.32 Left lower quadrant pain (principal); K57.92 Diverticulitis of intestine, part unspecified, without perforation or abscess without bleeding; R11.2 Nausea with vomiting, unspecified; I10 Essential (primary) hypertension; F17.210 Nicotine dependence, cigarettes, uncomplicated
CPT/HCPCS: 74176; 80048; 81001; 85025; 99283